=== PATIENT | male | born 1960 | race Caucasian/White ===

== ENCOUNTER → 2018-08-26 08:23 | Outpatient (CLI) | payer OTHER | END | disposition home or self-care (01) | LOC: D.NM 08:23 | PROVIDERS: ATTEND Nurse Practitioner Family | DX: R10.10 Upper abdominal pain, unspecified (principal) ==

== ENCOUNTER 2018-09-16 07:28 | Outpatient (CLI) | payer OTHER ==
[~2018-09-16] VITALS: Ht 185.4 cm; Wt 95.3 kg
[2018-09-16 08:07] LABS: CALC OSMOLALITY 281 mosm/kg (275-300); CALCIUM 9.2 mg/dL (8.5-10.1); CARBON DIOXIDE 26.7 mmol/L (21.0-32.0); CHLORIDE - SERUM 106 mmol/L (98-107); GLUCOSE 116 mg/dL (74-106); POTASSIUM - SERUM 4.1 mmol/L (3.5-5.1); SODIUM 141 mmol/L (136-145); UREA NITROGEN 13 mg/dL (7-18); eGFR NON AFRICAN AMERICAN 82 mL/min (90-120)
[2018-09-16] MEDS ORDERED: MULTI-DAY VITAM1 TAB PO (08:31)
[2018-09-16] MEDS ORDERED: BAYER CHEWABLE81 MG PO (08:31)
[2018-09-16 08:38] LABS: HEMATOCRIT 45.7 % (42.0-54.0); HEMOGLOBIN 15.8 g/dL (13.5-17.5); LYMPHOCYTES 36.8 % (15-50); MCHC 34.6 g/dL (31.0-37.0); MCV 86.7 fL (80.0-100.0); MEAN PLATELET VOLUME 8.9 fL (7.4-10.4); NEUTROPHILS 50.5 % (40-80); PLATELET COUNT 251 10x3/uL (130-400); RBC 5.27 10x6/uL (4.20-6.10); RDW 12.7 % (11.5-14.5)
[2018-09-16 08:54] VITALS: BP 147/95; Ht 185.4 cm; Wt 95.3 kg
--- NOTE | 2018-09-16 12:40 | NUR ---
PT DECIDED TO CANCEL PROCEDURE DUE TO LONG DELAY. PT WILL RESCHEDULE PROCEDURE W/ [facility]. DC'D IV CATH FULLY INTACT.
== END 2018-09-16 12:42 | disposition home or self-care (01) ==
LOC: D.OPS 07:28 → D.PAN 12:00 → EDSTATUS 12:00 → D.OPS 12:00
PROVIDERS: ATTEND Surgery
DX: K82.8 Other specified diseases of gallbladder (principal)

== ENCOUNTER → 2019-01-30 07:25 | Day surgery (SDC) | payer OTHER ==
[2019-01-29 13:40] LABS: BASOPHILS 0.7 % (0-2); EOSINOPHILS 3.7 % (0-7); HEMATOCRIT 47.5 % (42.0-54.0); HEMOGLOBIN 16.1 g/dL (13.5-17.5); IMMATURE GRANULOCYTES 0.2 % (0-5); MCH 30.1 pg (26.0-34.0); MCHC 33.9 g/dL (31.0-37.0); MEAN PLATELET VOLUME 9.5 fL (7.4-10.4); MONOCYTES 9.5 % (2-11); NEUTROPHILS 53.9 % (40-80); PLATELET COUNT 252 10x3/uL (130-400); RBC 5.34 10x6/uL (4.20-6.10); RDW 12.9 % (11.5-14.5); WBC 5.4 10x3/uL (4.8-10.8)
[2019-01-29 13:58] LABS: ANION GAP 9.5 mmol/L (8-16); CALCIUM 9.2 mg/dL (8.5-10.1); CARBON DIOXIDE 32.9 mmol/L (21.0-32.0); CREATININE - SERUM 1.1 mg/dL (0.6-1.3); POTASSIUM - SERUM 4.4 mmol/L (3.5-5.1)
[~2019-01-30] VITALS: Ht 185.4 cm; Wt 95.3 kg
[~2019-01-30 07:25] MED LIST: BAYER CHEWABLE81 MG PO; MULTI-DAY VITAM1 TAB PO; ULTRAM50 MG PO
[2019-01-30 08:21] VITALS: BP 148/86; Ht 185.4 cm; Wt 95.3 kg
--- NOTE | 2019-01-30 12:34 | NUR ---
OPA IN AIRWAY ON ADMIT
--- NOTE | 2019-01-30 14:46 | NUR ---
1445 RX, DWITH TRAMADOL FOR C/O PAIN 5. TOLERATING FULL LIQUIDS. AWAITING VOID
--- NOTE | 2019-02-12 13:49 | OP ---
PATIENT NAME: ABHAY GANDARA MEDICAL RECORD: [id number] :64 LOCATION:D.OPS ADMISSION DATE: SURGEON: RUY FIELDS MD DATE OF OPERATION: 01/30/2019 PREOPERATIVE DIAGNOSES: 1. Biliary dyskinesia. 2. Hypercholesterolemia. POSTOPERATIVE DIAGNOSES: 1. Biliary dyskinesia. 2. Hypercholesterolemia. PROCEDURE: Laparoscopic cholecystectomy. SURGEON: Ruy Fields MD REPORT OF PROCEDURE: The patient's abdomen was prepped and draped in sterile fashion. A cutdown was made on the superior aspect of the umbilicus, 0 Vicryls were placed in the fascia bilaterally and the fascia was incised with 15-blade. I then bluntly entered the peritoneal cavity and placed a 12-mm Katarzyna port. Under direct visualization, a 5 mm trocar was placed in the epigastrium and 2 more 5-mm trocars were placed in the right subcostal region. The gallbladder was grasped and elevated. There were no signs of any inflammatory changes. The cystic artery and cystic duct were dissected free and these were clipped proximally and distally and ligated in standard fashion. The gallbladder was taken off the liver bed using electrocautery and placed into the right upper quadrant. Any bleeding from the liver bed was then treated with electrocautery. We irrigated out the right upper quadrant and assured there was no sign of any bleeding or bile leakage. At this point, the ports and insufflation were then removed and the gallbladder was taken out through the umbilicus. The umbilical fascia was closed with interrupted 0 Vicryls times 3. The wounds were then irrigated out with normal saline and infused with 10 mL of 0.25% Marcaine with epinephrine. The skin incisions were all closed with subcutaneous 5-0 Monocryl and dressed appropriately. COMPLICATIONS: None. CONDITION: Stable. ANESTHESIA: General endotracheal and local. BLOOD LOSS: Minimal. TRANSINT:[id number] Voice Confirmation ID: [id number] DOCUMENT ID: [id number] RUY FIELDS MD at 1349 CC: SHAMA ANDERSON [id number] DICTATION DATE: 01/30/19 1216 [employer]OCATIONAL TECHNICAL EDUCATION DIRECTOR: 01/30/19 1304 [facility] 01/30/19 [place] [address]
== END | disposition home or self-care (01) ==
LOC: D.OPS 07:25
PROVIDERS: ATTEND Surgery
DX: K82.8 Other specified diseases of gallbladder (principal)